=== PATIENT | female | born 1985 | race Caucasian/White ===

== ENCOUNTER → 2020-02-28 10:30 | Outpatient (CLI) | payer BC, SELFPAY ==
[2020-02-28 19:43] LABS: Adenovirus,PCR Not Detected (NotDetected); Bordetella Pertussis Not Detected (NotDetected); Chlamydophila Pneumoniae, PCR Not Detected (NotDetected); Coronavirus 19, PCR Not Detected (NotDetected); Coronavirus 229E Not Detected (NotDetected); Coronavirus NL63 Not Detected (NotDetected); Coronavirus OC43 Not Detected (NotDetected); Coronovirus HKU1,PCR Not Detected (NotDetected); Human Metapneumovirus Not Detected (NotDetected); Influenza A, PCR Not Detected (NotDetected); Influenza AH1, 2009 Not Detected (NotDetected); Influenza AH1, PCR Not Detected (NotDetected); Influenza AH3,PCR Not Detected (NotDetected); Influenza B, PCR Not Detected (NotDetected); Mycoplasma Pneumoniae, PCR Not Detected (NotDetected); Parainfluenza 1, PCR Not Detected (NotDetected); Parainfluenza 2, PCR Not Detected (NotDetected); Parainfluenza 3, PCR Not Detected (NotDetected); Parainfluenza 4, PCR Not Detected (NotDetected); Respiratory Syncytial Virus Not Detected (NotDetected); Rhinovirus/Enterovirus Not Detected (NotDetected)
== END ==
PROVIDERS: PCP Nurse Practitioner Family; Visit Provider Nurse Practitioner Family
DX: Z03.818 Encounter for observation for suspected exposure to other biological agents ruled out (principal); R06.02 Shortness of breath
CPT/HCPCS: 87581; 87633; 87798; U0003

== ENCOUNTER 2020-05-03 18:35 | Emergency (ER) | payer BC, SELFPAY ==
--- NOTE | 2020-05-03 18:31 | ECG_ITS ---
APPROVED REPORT Exam: Resting ECG HR:81 bpm ECG Measurements Heart Rate 81 AXES OK 132 P 59 QRSd 78 QRS 26 QT 378 T 42 QTc 439 Conclusion Normal sinus rhythm with sinus arrhythmia Low voltage QRS ST abnormality, possible digitalis effect Abnormal ECG Electronically signed by : Ken Cordoba, 05/04/2020 15:21:01
[2020-05-03 18:35] VITALS: BP 160/108; PULSE 100; RESP 22; TEMP 37.4; O2SAT 98; BMI 27.4
--- NOTE | 2020-05-03 18:38 | [facility].EDGENADL ---
ED Disposition Clinical Impression: Atypical chest pain Temporomandibular joint (TMJ) pain Qualifiers: Laterality: left Qualified Code(s): M26.622 - Arthralgia of left temporomandibular joint Disposition: Home, Self-Care Condition on Discharge: Good Instructions: DI for Atypical Chest Pain Additional Instructions: Additional instructions for CHEST PAIN: See your physician as soon as possible for further evaluation. Return immediately if worsening chest pain, vomiting, shortness of breath, fever, coughing of blood. Referrals: Clary Light APRN [Primary Care Provider] - - Critical Care Critical Care Time: No Attestation: On , the high probability of a clinically significant, sudden or life threatening deterioration of the following system(s) required my full and direct attention, intervention and personal management. The time I documented below is in addition to time spent performing reported procedures but includes the following listed in this critical care notation. Medical Decision Making - Rashi Inquiry Pt receiving controlled substance: No Vital Signs: 05/03/20 18:35 Temperature 99.3 F Temperature Source Oral Pulse Rate [Radial] 100 H Respiratory Rate 22 Blood Pressure [Right Arm] 160/108 H Blood Pressure Mean [Right Arm] 125 Blood Pressure Position [Right Arm] Sitting 02 Sat by Pulse Oximetry 98 Oxygen Delivery Method Room Air - Lab Data Lab Results 05/03/20 18:30: WBC 11.4 H, RBC 5.39, Hgb 17.6 H, Hct 51.1 H, MCV 94.8, MCH 32.8 H, MCHC 34.5, RDW 12.8, Plt Count 303, MPV 7.6, Neut % (Auto) 42.6, Lymph % (Auto) 48.6, [place] % (Auto) 3.3, Eos % (Auto) 4.4, Baso % (Auto) 1.2, Neut # (Auto) 4.9, Lymph # (Auto) 5.6 H, [place] # (Auto) 0.4, Eos # (Auto) 0.5 H, Baso # (Auto) 0.1 05/03/20 18:30: Sodium 139, Potassium 3.5, Chloride 104, Carbon Dioxide 25, Anion Gap 13.5, BUN 10, Creatinine 0.90, Estimated Creat Clear 103, Estimated GFR 73, Est GFR ( Amer) 88, Glucose 110 H, Calcium 10.0, Troponin I < 0.01 05/03/20 18:30: Serum HCG, Qual Negative Result diagrams: 05/03/20 18:30 05/03/20 18:30 Orders (Tests/Meds): ORDERS Category Date Time Status XR chest portable Stat Exams 05/03/20 18:44 Taken Troponin I Q3H Lab 05/03/20 21:45 Ordered Troponin I Q3H Lab 05/04/20 00:45 Ordered - ECG Data Tracing #1 EKG interpreted by Nato Sy MD: Rhythm: sinus Rate: [place]: normal Ectopy: none Conduction: normal ST Segment Changes: Nonspecific T Wave Changes: none Q Waves: none No evidence of acute ischemia or injury No prior EKGs available for comparison. Medical Decision Narrative: The patient's jaw pain has been present for 1 month, continuous, affected by jaw movement. I feel this is related to temporomandibular joint pathology. She says she has a prior history of TMJ problems and has taken muscle relaxers for it. Her neck and thoracic pain seems likely musculoskeletal or radicular. I am not suspicious of coronary artery disease, aortic dissection, or pulmonary embolism. Work-up is unremarkable. I feel she can be discharged for outpatient follow-up. General Adult HPI - General Chief complaint: Chest Pain Stated complaint: CHEST PAIN Time Seen by Provider: 05/03/20 18:38 - History of Present Illness HPI narrative: States that she has had pain in her left jaw in the TMJ area that increases with chewing and opening her mouth for 1 month. It has been constant. Today she developed a pain in the left side of her neck going down to her left shoulder blade and around the left lateral side of her chest. 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 It has seemed to ease somewhat. She notices that it increased when she raised her left arm. This afternoon she also had a brief mild episode of left anterior chest pain. Denies difficulty breathing. She has a history of patent foramen ovale which she had repaired in December. She
--- NOTE | 2020-05-03 18:44 | XR_ITS ---
PROCEDURE: XR CHEST PORTABLE CLINICAL HISTORY: CHEST PAIN COMPARISON: No exams were available for comparison FINDINGS: The cardiomediastinal silhouette and pulmonary vascularity are within normal limits. The lungs are clear without infiltrates, suspicious nodules, or pleural effusions. No acute bony abnormalities. IMPRESSION: No acute findings. Dictated by: Shine Miranda MD 05/04/2020 05:34 Shine Miranda MD in [place] 05/04/2020 05:34
[2020-05-03 18:57] LABS: Basophils # 0.1 K/mm3 (0-0.2); Basophils % 1.2 % (0.1-2.0); Eosinophils # 0.5 K/mm3 (0.0-0.4); Eosinophils % 4.4 % (0.1-12.0); Hematocrit 51.1 % (37.0-47.0); Hemoglobin 17.6 g/dL (12.2-16.2); Lymphocytes # 5.6 K/mm3 (0.7-4.5); Lymphocytes % 48.6 % (10-50); Mean Corpuscular HGB Conc 34.5 g/dL (31.8-35.4); Mean Corpuscular Hemoglobin 32.8 pg (27.0-31.2); Mean Corpuscular Volume 94.8 fl (81-99); Mean Platelet Volume 7.6 fl (7.4-10.4); Monocytes # 0.4 K/mm3 (0.1-1.0); Monocytes % 3.3 % (1.7-9.3); Neutrophils # 4.9 K/mm3 (1.8-7.8); Neutrophils % 42.6 % (37.0-80.0); Platelet Count 303 K/mm3 (142-424); Red Blood Count 5.39 M/mm3 (4.20-5.40); Red Cell Distribution Width 12.8 % (11.5-17.5); White Blood Count 11.4 K/mm3 (4.8-10.8)
[2020-05-03 18:58] LABS: Chloride 104 mmol/L (98-107); Sodium 139 mmol/L (136-145)
[2020-05-03 18:59] LABS: Potassium 3.5 mmoL/L (3.5-5.1)
[2020-05-03 19:01] LABS: Blood Urea Nitrogen 10 mg/dl (7-17); Creatinine Clearance Estimated 103 mL/min (50-200); Estimated Glomerular Filt Rate 73 ml/min (>60); GFR (African American) 88 ML/MIN (>60)
[2020-05-03 19:02] LABS: Anion Gap 13.5 mEq/L (5-15); Carbon Dioxide 25 mmol/L (22.0-30.0); Glucose 110 mg/dl (74-100)
[2020-05-03 19:07] LABS: HCG Qualitative, Serum Negative (Negative)
[2020-05-03 19:14] LABS: Troponin I < 0.01 ng/ml (0.00-0.034)
[2020-05-03 20:04] VITALS: BP 113/81; PULSE 77; RESP 14; TEMP 37.2; O2SAT 99
== END 2020-05-03 20:06 | disposition home or self-care (01) ==
PROVIDERS: Emergency Provider Emergency Medicine; PCP Nurse Practitioner Family
DX: R07.89 Other chest pain (principal); M26.622 Arthralgia of left temporomandibular joint; Q21.1 Atrial septal defect; Z79.899 Other long term (current) drug therapy
CPT/HCPCS: 71045; 80048; 84484; 84703; 85025; 93005; 99282

== ENCOUNTER → 2021-07-17 09:27 | Outpatient (CLI) | payer BC, SELFPAY ==
--- NOTE | 2021-07-17 09:35 | XR_ITS ---
FINAL REPORT CLINICAL HISTORY: CONSTIPATION,RLQ PAIN FINDINGS: A single view of the abdomen was obtained. There is gas within a redundant colon. There are no abnormally dilated loops of small bowel. An IUD is present within the pelvis. IMPRESSION: Gas within a redundant colon. No abnormally dilated loops of small bowel. Reviewed, Interpreted and Dictated by Frank Shah MD Transcribed by Manisha Pike Authenticated by Frank Shah MD on 07/17/2021 12:26:55 PM [facility]
== END ==
PROVIDERS: PCP Nurse Practitioner Family; Visit Provider Nurse Practitioner Family
DX: R10.31 Right lower quadrant pain (principal); K59.00 Constipation, unspecified
CPT/HCPCS: 74019

== ENCOUNTER → 2021-07-19 13:29 | Outpatient (CLI) | payer BC, SELFPAY ==
--- NOTE | 2021-07-19 13:31 | US_ITS ---
FINAL REPORT CLINICAL HISTORY: PAIN RIGHT LOWER QUADRANT FINDINGS: Transvaginal sonographic images of the pelvis were obtained. The uterus measures 6.1 x 4.3 x 2.7 cm. The endometrium measures 3 mm, which is within normal limits. An IUD is noted to be in proper place within the endometrial cavity. The right ovary measures 4.3 cm cm in length and left ovary measures 4.1 cm cm in length. Normal blood flow seen to the ovaries. A small follicle is present in the left ovary. A complex, septated cyst is identified within the right ovary measuring up to 3.0 cm. There is a small amount of free fluid in the pelvis which is favored to be physiologic. IMPRESSION: IUD properly position within the endometrial cavity. Complex right ovarian cyst. Small amount of free fluid in the pelvis, favored physiologic. Reviewed, Interpreted and Dictated by Frank Shah MD Transcribed by Manisha Pike Authenticated by Frank Shah MD on 07/19/2021 03:12:07 PM [facility]
== END ==
PROVIDERS: PCP Nurse Practitioner Family; Visit Provider Nurse Practitioner Family
DX: R10.31 Right lower quadrant pain (principal)
CPT/HCPCS: 76830